=== PATIENT | female | born 1980 | race Caucasian/White ===

== ENCOUNTER 2016-04-21 05:38 | Day surgery (SDC) | payer OTHER ==
[~2016-04-21] VITALS: Ht 165.1 cm; Wt 56.7 kg
[~2016-04-21 05:38] MED LIST: IBUPROFEN400 MG PO; PRENATAL TABLE1 EACH PO
[2016-04-21 06:05] VITALS: BP 118/56
[2016-04-21] MEDS ORDERED: IBUPROFEN800 MG PO (08:31)
[2016-04-21] MEDS ORDERED: NORCO 5/3251 TABLET PO (08:46)
[2016-04-21 09:25] VITALS: BP 127/67
[2016-04-21 10:20] VITALS: BP 102/54
[2016-04-21 10:58] VITALS: BP 107/63
== END 2016-04-21 11:10 | disposition home or self-care (01) ==
LOC: SDC 05:38
PROC: 0UBC7ZZ Excision of Cervix, Via Natural or Artificial Opening (ICD-10-PCS; principal; 2016-04-21)
DX: N87.1 Moderate cervical dysplasia (principal); R87.810 Cervical high risk human papillomavirus (HPV) DNA test positive; F41.1 Generalized anxiety disorder; F33.9 Major depressive disorder, recurrent, unspecified; Z80.3 Family history of malignant neoplasm of breast
CPT/HCPCS: 88305; 88307; J0131; J1100; J1885; J2250; J2405; J3010

== ENCOUNTER 2016-09-10 23:58 | Emergency (ER) | payer BC ==
[~2016-09-10] VITALS: Ht 165.1 cm; Wt 58.6 kg
[~2016-09-10 23:58] MED LIST changes: +IBUPROFEN800 MG PO; +NORCO 5/3251 TABLET PO
[2016-09-11 00:48] LABS: HEMATOCRIT 35.2 % (36.0-46.0); MCH 31.3 PG (29.0-34.0); MCHC 33.5 G/DL (30.0-36.0); MCV 93.4 FL (83-99); MEAN PLAT.VOLUME 9.9 uM^3 (9.5-12.4); PLATELET COUNT 213 K/uL (156-360); RBC DIS.WIDTH-CV 11.9 % (11.8-14.6); RBC DIS.WIDTH-SD 40.4 % (39-53); RED BLOOD COUNT 3.77 M/uL (3.80-5.20); WHITE BLOOD COUNT 7.1 K/uL (4.1-10.2)
[2016-09-11 00:57] LABS: CHLORIDE 103 mEq/L (99-109); POTASSIUM 3.9 mEq/L (3.7-5.4); SODIUM 138 mEq/L (136-147)
[2016-09-11 00:59] LABS: GLUCOSE 93 mg/dL (70-99)
[2016-09-11 01:00] LABS: ANION GAP 9 MEQ/L (2-14)
[2016-09-11 01:03] LABS: GFR ESTIMATE (CALCULATED) > 59 mL/min/
[2016-09-11 01:04] LABS: UREA NITROGEN (BUN) 13 mg/dL (9-23)
[2016-09-11 01:11] LABS: QUANTITATIVE HCG < 4.0 MIU/ML
[2016-09-11 01:18] LABS: ADD MIUA? YES; BILIRUBIN NEGATIVE; BLOOD NEGATIVE; COLOR YELLOW ((YELLOW)); GLUCOSE (STRIP) NEGATIVE; KETONES NEGATIVE; LEUKOCYTES NEGATIVE; NITRITE NEGATIVE; PROTEIN (STRIP) 30; SPECIFIC GRAVITY 1.024 (1.000-1.030); UROBILINOGEN 0.2 MG/DL (0.2-1.0)
[2016-09-11] MEDS ORDERED: ZOFRAN ODT4 MG PO (01:46)
[2016-09-11] MEDS ORDERED: FIORICET 50-301 EACH PO (01:46)
[2016-09-11 01:53] VITALS: BP 114/70
[2016-09-11 02:16] LABS: AMORPHOUS URATES CRYSTALS 3+; BACTERIA 1+ /HPF; CRYSTALS PRESENT; EPITHELIAL CELLS 2+ /HPF; MUCUS 1+ /LPF; RED BLOOD CELLS NONE SEEN /HPF (0-5); UCUL ADDED? NO; WHITE BLOOD CELLS NONE SEEN /HPF (0-5)
== END 2016-09-11 01:55 | disposition home or self-care (01) ==
LOC: EME 23:58
PROVIDERS: Physician Assistant
DX: R51 Headache (principal)
CPT/HCPCS: 70450; 80048; 81003; 84702; 85027; 99281; 99284; J1200; J1885; J2765; J7030

== ENCOUNTER 2017-05-28 17:09 | Inpatient (IN) | payer MEDICARE ==
[~2017-05-28] VITALS: Ht 165.1 cm; Wt 68.9 kg
[~2017-05-28 17:09] MED LIST changes: +FIORICET 50-301 EACH PO; +ZOFRAN ODT4 MG PO
[2017-05-28 17:41] VITALS: BP 143/81
[2017-05-28 17:58] LABS: BASOPHIL (%) 0.4 % (0-1); EOSINOPHIL (%) 0.4 % (0-5); HEMATOCRIT 38.9 % (36.0-46.0); HEMOGLOBIN 12.9 G/DL (11.9-15.5); IMMATURE GRANULOCYTE (%) 0.4 % (0.0-0.7); LYMPHOCYTE (%) 22.6 % (15-42); LYMPHOCYTE COUNT 2.5 K/uL (1.0-2.8); MCH 31.4 PG (29.0-34.0); MCHC 33.2 G/DL (30.0-36.0); MCV 94.6 FL (83-99); MONOCYTE (%) 4.7 % (3-12); MONOCYTE COUNT 0.5 K/uL (0-0.8); NEUTROPHIL (%) 71.5 % (45-76); NEUTROPHIL COUNT 7.8 K/uL (1.8-6.4); PLATELET COUNT 235 K/uL (156-360); RBC DIS.WIDTH-CV 12.4 % (11.8-14.6); RBC DIS.WIDTH-SD 42.5 % (39-53); RED BLOOD COUNT 4.11 M/uL (3.80-5.20)
[2017-05-28 18:12] VITALS: BP 124/76
[2017-05-28 18:22] LABS: ALKALINE PHOSPHATASE 129 IU/L (3-129); ALT (GPT) 7 IU/L (3-49); AST (GOT) 14 IU/L (2-34); CHLORIDE 102 MEQ/L (99-109); CREATININE 0.6 MG/DL (0.6-1.3); GFR ESTIMATE (CALCULATED) > 59 mL/min/; GLUCOSE 68 mg/dL (70-99); LACTATE DEHYDROGENASE 157 IU/L (20-246); POTASSIUM 3.8 MEQ/L (3.7-5.4); SODIUM 137 MEQ/L (136-147); TOTAL BILIRUBIN 0.5 MG/DL (0.0-1.0); TOTAL PROTEIN 7.6 G/DL (6.4-8.3); UREA NITROGEN (BUN) 10 mg/dL (9-23)
[2017-05-28 19:16] LABS: AMPHETAMINE NEGATIVE (500 ng/mL); BARBITURATES NEGATIVE (200 ng/mL); BENZODIAZEPINES NEGATIVE (150 ng/mL); BUPRENORPHINE NEGATIVE (10 ng/mL); COCAINE NEGATIVE (150 ng/mL); METHADONE NEGATIVE (200 ng/mL); METHAMPHETAMINE NEGATIVE (500 ng/mL); OPIATES (MORPHINE) NEGATIVE (100 ng/mL); OXYCODONE NEGATIVE (100 ng/mL); PHENCYCLIDINE NEGATIVE (25 ng/mL); PROPOXYPHENE NEGATIVE (300 ng/mL); THC CANNABINOIDS NEGATIVE (50 ng/mL); TRICYCLIC ANTIDEPRESSANTS NEGATIVE (300 ng/mL)
[2017-05-28 20:16] VITALS: BP 126/77
[2017-05-29] VITALS (22 sets, daily range): BP systolic 100–127; BP diastolic 50–62
[2017-05-29 06:18] LABS: BASOPHIL (%) 0.1 % (0-1); EOSINOPHIL (%) 0 % (0-5); HEMATOCRIT 21.6 % (36.0-46.0); IMMATURE GRANULOCYTE (%) 0.6 % (0.0-0.7); LYMPHOCYTE COUNT 1.2 K/uL (1.0-2.8); MCH 31.4 PG (29.0-34.0); MCHC 32.9 G/DL (30.0-36.0); MCV 95.6 FL (83-99); MONOCYTE (%) 3.5 % (3-12); MONOCYTE COUNT 0.5 K/uL (0-0.8); NEUTROPHIL (%) 87.8 % (45-76); NEUTROPHIL COUNT 13.4 K/uL (1.8-6.4); PLATELET COUNT 178 K/uL (156-360); RBC DIS.WIDTH-CV 12.4 % (11.8-14.6); RBC DIS.WIDTH-SD 43.1 % (39-53); WHITE BLOOD COUNT 15.2 K/uL (4.1-10.2)
[2017-05-29 06:19] LABS: HEMOGLOBIN 7.1 G/DL (11.9-15.5); RED BLOOD COUNT 2.26 M/uL (3.80-5.20)
[2017-05-29 12:18] LABS: BASOPHIL (%) 0.1 % (0-1); EOSINOPHIL (%) 0.1 % (0-5); HEMATOCRIT 18.3 % (36.0-46.0); IMMATURE GRANULOCYTE (%) 0.4 % (0.0-0.7); LYMPHOCYTE (%) 13.6 % (15-42); LYMPHOCYTE COUNT 2.2 K/uL (1.0-2.8); MCH 32.1 PG (29.0-34.0); MCHC 33.3 G/DL (30.0-36.0); MCV 96.3 FL (83-99); MONOCYTE (%) 7.5 % (3-12); MONOCYTE COUNT 1.2 K/uL (0-0.8); NEUTROPHIL (%) 78.3 % (45-76); NEUTROPHIL COUNT 12.6 K/uL (1.8-6.4); PLATELET COUNT 155 K/uL (156-360); RBC DIS.WIDTH-CV 12.7 % (11.8-14.6); RBC DIS.WIDTH-SD 43.8 % (39-53); WHITE BLOOD COUNT 16.1 K/uL (4.1-10.2)
[2017-05-29 12:20] LABS: HEMOGLOBIN 6.1 G/DL (11.9-15.5)
[2017-05-30 02:32] VITALS: BP 126/60
[2017-05-30 06:00] LABS: BASOPHIL (%) 0.2 % (0-1); EOSINOPHIL (%) 0.5 % (0-5); EOSINOPHIL COUNT 0.1 K/uL (0-0.3); HEMATOCRIT 26.9 % (36.0-46.0); IMMATURE GRANULOCYTE (%) 0.4 % (0.0-0.7); LYMPHOCYTE (%) 19.1 % (15-42); LYMPHOCYTE COUNT 2.1 K/uL (1.0-2.8); MCH 30.9 PG (29.0-34.0); MCHC 33.1 G/DL (30.0-36.0); MCV 93.4 FL (83-99); MONOCYTE (%) 7.9 % (3-12); MONOCYTE COUNT 0.9 K/uL (0-0.8); NEUTROPHIL (%) 71.9 % (45-76); NEUTROPHIL COUNT 7.9 K/uL (1.8-6.4); PLATELET COUNT 169 K/uL (156-360); RBC DIS.WIDTH-CV 13.8 % (11.8-14.6); RBC DIS.WIDTH-SD 47.1 % (39-53)
[2017-05-30 06:02] LABS: HEMOGLOBIN 8.9 G/DL (11.9-15.5); RED BLOOD COUNT 2.88 M/uL (3.80-5.20)
[2017-05-30 07:34] VITALS: BP 108/53
[2017-05-30 10:52] VITALS: BP 115/54
[2017-05-30 14:26] VITALS: BP 116/62
[2017-05-30 19:47] VITALS: BP 117/56
[2017-05-30 22:36] VITALS: BP 118/61
[2017-05-31 07:35] VITALS: BP 113/56
[2017-05-31] MEDS ORDERED: ENDOCET 5-3251 EACH PO (08:14)
[2017-05-31] MEDS ORDERED: IBUPROFEN800 MG PO (08:14)
[2017-05-31] MEDS ORDERED: FEROCON CAPSUL1 EACH PO (08:14)
[2017-05-31 10:26] VITALS: BP 107/55
== END 2017-05-31 13:00 | disposition home or self-care (01) | DRG 765 ==
LOC: LDRP-OP → 2WEST 17:11 → LDRP-OP 07-07 12:48
PROVIDERS: Obstetrics & Gynecology
DX: O36.63X0 Maternal care for excessive fetal growth, third trimester, not applicable or unspecified (principal); O72.1 Other immediate postpartum hemorrhage; O13.4 Gestational [pregnancy-induced] hypertension without significant proteinuria, complicating childbirth; Z30.2 Encounter for sterilization; O99.02 Anemia complicating childbirth; D62 Acute posthemorrhagic anemia; O99.344 Other mental disorders complicating childbirth; F32.9 Major depressive disorder, single episode, unspecified; F41.1 Generalized anxiety disorder; O99.214 Obesity complicating childbirth; E66.3 Overweight; Z68.21 Body mass index [BMI] 21.0-21.9, adult; Z3A.38 38 weeks gestation of pregnancy; Z37.0 Single live birth
CPT/HCPCS: 80053; 83615; 84550; 85025; 85025 91; 86850; 86900; 86901; 86920; 88302; J0690; J1100; J1200; J2274; J2405; J7120; P9016